=== PATIENT | female | born 1955 | race American Indian/Alaskan Native ===

== ENCOUNTER 2016-07-02 12:51 | Outpatient (CLI) | payer OTHER ==
--- NOTE | 2016-07-02 14:06 | XRay Report ---
Right hip 2 views: History: Pain and swelling. Findings: No bony or articular abnormality. No fracture or dislocation. Impression: Essentially negative right hip.
--- NOTE | 2016-07-02 14:09 | XRay Report ---
Right femur 2 views: History: Pain and swelling right eye. Findings: No fracture periosteal reaction or lytic lesion. No soft tissue calcification. Stable intramedullary man. Impression: No acute findings.
== END 2016-07-02 12:52 | disposition home or self-care (01) ==
LOC: VAS 12:51
DX: R22.41 Localized swelling, mass and lump, right lower limb (principal)

== ENCOUNTER 2016-10-28 09:49 | Day surgery (SDC) | payer OTHER ==
[2016-10-28] MEDS ORDERED: NACL 0.9% 1000 ML 1,000 ML IV SCH (11:00)
--- NOTE | 2016-10-28 11:13 | Anesthesia Day of Surgery ---
Anesthesia Day of Surgery - Day of Surgery Patient Examined: Yes Patient H&P Reviewed: Yes Patient is NPO: Yes
--- NOTE | 2016-10-28 11:15 | Anesthesia Consultation ---
Anesthesia Consult and Med Hx Date of service: 10/28/16 - Airway Anesthetic Teeth Evaluation: Partials (upper) ROM Head & Neck: Adequate Mental/Hyoid Distance: Adequate Mallampati Class: Class III Intubation Access Assessment: Probably Good - Pulmonary Exam CTA: Yes - Cardiac Exam Cardiac Exam: RRR - Pre-Operative Health Status ASA Pre-Surgery Classification: ASA3 Proposed Anesthetic Plan: MAC - Pulmonary Hx Smoking: Yes (quit 20 years ago) Hx Asthma: No - Cardiovascular System Hx Hypertension: Yes (palpitation) Hx Heart Attack/AMI: No - Central Nervous System Hx Seizures: No CVA: No - Endocrine Hx Renal Disease: Yes (cystitis) Hx Liver Disease: No Hx Non-Insulin Dependent Diabetes: No Hx Hypothyroidism: Yes (sp partial thyroidectomy, stopped taking meds) - Hematic Hx Anemia: No Hx Sickle Cell Disease: No - Other Systems Hx Cancer: No - Additional Comments Anesthesia Medical History Comments: NAC
[2016-10-28] MEDS ORDERED: DIPRIVAN 10 MG/ML IV ONE ×2 (11:50→11:51)
--- NOTE | 2016-10-28 12:24 | Operative Report ---
Operative Report Operative Report: Date of procedure: 10/28/2016 Procedure: Colonoscopy. Attending physician: Aravind Salazar MD Drill Presser: Aravind Salazar MD Indication: Patient is a 61-year-old female who presents for colorectal cancer screening. A colonoscopy serves to evaluate patient for colorectal cancer screening. Consent: Informed consent was obtained after advising the patient and family regarding nature of this procedure, its indications, potential benefits as well as possible complications including but not limited to bleeding perforation and adverse reaction to medication, infection as well as other cardiopulmonary complications. An informed written and verbal consent was then obtained after due opportunity was provided for questions and answers. Monitoring: Patient was monitored continuously with pulse oximetry and electrocardiographic recordings as well as blood pressure recordings. Vital signs remained stable throughout this procedure with no untoward events. Preoperative assessment: Patient was assessed immediately prior to this procedure for capacity to tolerate monitored anesthesia care and moderate sedation as well as general anesthesia. Patient's ASA classification is 2, Mallampati class is 2, Hyomental distance is 3. Instrument: Fujinon videocolonoscope. Fujinon video endoscope. Medications: Propofol given intravenously in divided doses. For details please refer to anesthesia records. Description of procedure: Patient was placed in the left lateral decubitus position after achieving sedation, a digital rectal examination was performed following which the colonoscope was introduced into the anal verge and advanced to the cecum which was identified by the cecal valve, the appendiceal orifice, as well as by the cecal strap and direct transillumination. The colonoscope was subsequently withdrawn with careful inspection of all mucosal surfaces. Patient tolerated this procedure well and was subsequently taken to the recovery room. The following findings were noted. Findings: Patient had significant diverticulosis involving the all segments of the colon. The rest of the colon to the cecum was normal, except for areas of retained stool. On the retroflex view at the anal verge, patient had prominent friable internal hemorrhoids. Patient tolerated the procedure well with no untoward events. Impression: Diverticular disease of the colon. Prominent Internal hemorrhoids Plan: Daily sitz baths as needed. High-fiber diet. PRN stool softeners Repeat colonoscopy in 10 years
--- NOTE | 2016-10-28 12:25 | Discharge Summary ---
Short Stay Discharge Plan Activity: advance as tolerated Weight Bearing Status: Weight Bear as Tolerated Diet: regular Additional Instructions: Post Sedation D/C Instructions When you return home you may resume your regular diet unless otherwise directed . -Go directly home from the hospital and rest quietly. You may resume normal activities tomorrow. - Do NOT drive, return to work, operate any machinery or make any important personal or business decisions today. - Do NOT drink any alcohol or take nerve or sleeping drugs. They add to the effects of the medicine still present in your body. Follow up with: MAIA BALDWIN MD [Primary Care Provider] - 7 Days
[2016-10-28 12:56] VITALS: BP 115/72
--- NOTE | 2016-10-28 13:43 | Post Anesthesia Evaluation ---
- Post Anesthesia Evaluation Patient Participated: Yes Airway Patent: Yes Stable Respiratory Function: Yes Nausea/Vomiting: No Temp > 96.8F: Yes Pain Manageable: Yes Adequeate Hydration: Yes Anesthesia Complications: No Block Receding Appropriately: Not Applicable Patient on Ventilator: No
[2016-10-28] MEDS ORDERED: XYLOCAINE MPF 2% ONE (14:00)
== END 2016-10-28 09:50 | disposition home or self-care (01) ==
LOC: GIO 09:49
PROVIDERS: ATTEND Internal Medicine Gastroenterology
DX: Z12.11 Encounter for screening for malignant neoplasm of colon (principal); K57.30 Diverticulosis of large intestine without perforation or abscess without bleeding; K64.8 Other hemorrhoids; M19.90 Unspecified osteoarthritis, unspecified site; I10 Essential (primary) hypertension; E03.9 Hypothyroidism, unspecified; Z90.710 Acquired absence of both cervix and uterus; Z87.448 Personal history of other diseases of urinary system; Z96.651 Presence of right artificial knee joint; Z79.899 Other long term (current) drug therapy; Z88.2 Allergy status to sulfonamides; Z87.891 Personal history of nicotine dependence; Z72.89 Other problems related to lifestyle; Z83.71 Family history of colonic polyps
CPT/HCPCS: G0105; J2704; J7030

== ENCOUNTER 2016-12-24 09:50 | Outpatient (CLI) | payer OTHER ==
--- NOTE | 2016-12-24 11:23 | Ultrasound Report ---
ULTRASOUND BLADDER RESIDUAL: INDICATION: Pyuria. COMPARISON: None similar. FINDINGS: Sonographic estimation of pre- and postvoid urinary bladder volume performed. Prevoid urinary bladder volume is 67 cubic centimeters. Postvoid urinary bladder volume is 12 cubic centimeters. CONCLUSION: Small postvoid residual noted, as described with bladder wall thickening not excluded. Please correlate. Thank you for the opportunity to participate in this patient's care.
--- NOTE | 2016-12-24 11:30 | Ultrasound Report ---
ULTRASOUND RENAL INDICATION: Pyuria. COMPARISON: 09/15/2011 CT. FINDINGS: Renal sonography demonstrates normal renal cortical echogenicity. Grossly preserved contours. Right kidney measures 9.4 x 4.9 x 4.9 cm with cortical thickness of 1.7 cm. Dominant right interpolar cystic lesion now estimated at 5.2 x 3.8 cm, image 14, previously approximately 7 x 5.7 cm. Right kidney in part obscured due to bowel gas. Mild right upper to mid renal collecting system fullness again seen with AP diameter of approximately 1.3 cm. Left kidney estimated at 9.3 x 4.6 x 4.7 cm with cortical thickness of 1.2 cm. Collecting system fullness centrally possible. Urinary bladder suboptimally distended and assessed. CONCLUSION: Right renal cyst again noted with possible intrarenal collecting system fullness/slight hydronephrosis, as described. Please correlate. Thank you for the opportunity to participate in this patient's care.
== END 2016-12-24 09:51 | disposition home or self-care (01) ==
LOC: US 09:50
PROVIDERS: ATTEND Internal Medicine Nephrology
DX: N28.1 Cyst of kidney, acquired (principal); N39.0 Urinary tract infection, site not specified; N32.89 Other specified disorders of bladder; N28.89 Other specified disorders of kidney and ureter; I10 Essential (primary) hypertension; E78.00 Pure hypercholesterolemia, unspecified; M06.9 Rheumatoid arthritis, unspecified; E03.9 Hypothyroidism, unspecified; Z87.891 Personal history of nicotine dependence
CPT/HCPCS: 76770; 76857

== ENCOUNTER 2017-05-17 11:23 | Outpatient (CLI) | payer OTHER ==
--- NOTE | 2017-05-17 16:51 | Mammography Report ---
BILATERAL DIGITAL SCREENING MAMMOGRAM with CAD: 05/17/17 11:23:00 CLINICAL: Routine screening. COMPARISON:THERESA 04/30/16 FINDINGS: The breasts are almost entirely fatty. No mass, architectural distortion or suspicious calcifications. IMPRESSION: No mammographic evidence of malignancy. BI-RADS CATEGORY: 1 - - Negative RECOMMENDATION: Routine mammographic screening in one year. COMMENT: Patient follow-up letters are generated by our [employer] application.
== END 2017-05-17 11:24 | disposition home or self-care (01) ==
LOC: MAMMO 11:23
PROVIDERS: ATTEND Family Medicine
DX: Z12.31 Encounter for screening mammogram for malignant neoplasm of breast (principal); I10 Essential (primary) hypertension; E78.00 Pure hypercholesterolemia, unspecified; M06.9 Rheumatoid arthritis, unspecified; E03.9 Hypothyroidism, unspecified; Z87.891 Personal history of nicotine dependence
CPT/HCPCS: 77067; G0202

== ENCOUNTER 2017-08-08 11:09 | Emergency (ER) | payer OTHER ==
[2017-08-08 12:22] LABS: Basophils # (Auto) 0.1 K/mm3 (0.0-0.1); Basophils % (Auto) 0.9 % (0.0-1.8); Eosinophils % (Auto) 0.5 % (0.0-4.3); Hematocrit 40.3 % (30.3-42.9); Hemoglobin 13.3 gm/dl (10.1-14.3); Lymphocytes # (Auto) 1.8 K/mm3 (1.2-5.4); Lymphocytes % (Auto) 30.3 % (13.4-35.0); Mean Corpuscular HGB Conc 33 % (30-34); Mean Corpuscular Hemoglobin 29 pg (28-32); Mean Corpuscular Volume 87 fl (79-97); Monocytes # (Auto) 0.5 K/mm3 (0.0-0.8); Monocytes % (Auto) 8.1 % (0.0-7.3); Platelet Count 375 K/mm3 (140-440); Red Blood Count 4.65 M/mm3 (3.65-5.03); Red Cell Distribution Width 12.2 % (13.2-15.2)
--- NOTE | 2017-08-08 12:27 | Cat Scan Report ---
CT HEAD WITHOUT CONTRAST: HISTORY: Facial numbness, general weakness. TECHNIQUE: Sequential 2.5mm CT images. COMPARISON: none. FINDINGS: Cerebral Parenchyma: Within normal limits. Cerebellum: Within normal limits. Brainstem: Within normal limits. Ventricles: Normal. Sella: Normal. Extra-axial spaces: Normal. Basal Cisterns: Normal. Intracranial Hemorrhage: None. Midline Shift: None. Calvarium: Normal. Sinuses: Normal. Mastoid Air Cells: Normal. Visualized Orbits: Normal. IMPRESSION: Cranial CT scan within normal limits.
[2017-08-08 12:31] LABS: INR 0.92 (0.87-1.13)
[2017-08-08 12:32] LABS: Partial Thromboplastin Time 32.7 Sec. (24.2-36.6)
[2017-08-08 12:33] LABS: BUN/Creatinine Ratio 21; Blood Urea Nitrogen 19 mg/dL (7-17); Calcium 9.5 mg/dL (8.4-10.2); Hemolysis Index 9
[2017-08-08 17:22] VITALS: BP 128/84
[2017-08-08] MEDS ORDERED: KIONEX PO ONE (17:35)
[2017-08-08] MEDS ORDERED: NACL 0.9% 500 ML 500 ML IV ONE (17:35)
[2017-08-08] MEDS ORDERED: PEPCID IV ONE (17:35)
[2017-08-08] MEDS ORDERED: BENTYL PO ONE (17:35)
[2017-08-08] MEDS ORDERED: TYLENOL PO ONE (17:35)
--- NOTE | 2017-08-08 17:42 | Emergency Department Report ---
ED General Adult HPI - General Chief complaint: Pain General Stated complaint: CRAMPS Time Seen by Provider: 08/08/17 17:21 Source: patient, RN notes reviewed, old records reviewed Mode of arrival: Ambulatory Limitations: No Limitations - History of Present Illness Initial comments: This is a 62-year-old female. The patient is previously on known to this provider. Her primary care doctor is Dr. Sanford Tarango. Past medical history includes arthritis, hypertension, hyperthyroidism. The patient presents to the ER with a complaint of head pressure and headache, abdominal cramping, leg cramping, and bilateral facial numbness. The symptoms have been present since Tuesday. Today is Tuesday. The symptoms are intermittent , do not radiate anywhere, did not have exacerbating or relieving factors. The headache is occipital and parietal, on the right-hand side, is not sudden or thunderclap in nature, and did not reach maximal intensity within an hour. It is not the most intense headache of her life. The facial numbness is in the bilateral maxillary regions, and mandibular regions. It does not radiate anywhere, and has no exacerbating or relieving factors. The patient makes no complaints of unsteady gait. The patient's next complaint is lower abdominal cramping. It does not radiate anywhere. It does not have exacerbating or relieving factors. Patient also describes urinary frequency, and foul smell to her urine. She denies dy Suria.the patient also complains of bilateral medial and lateral and anterior leg cramping, and leg discomfort. There is no extremity weakness, there is no bladder or bowel retention or incontinence, there is no saddle anesthesia. 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 -: Gradual Location: head, abdomen, left, right, upper extremity, lower extremity Severity scale (0 -10): 0 Quality: aching Consistency: intermittent Improves with: none Worsens with: none Associated Symptoms: headaches, malaise. denies: confusion, chest pain, cough, diaphoresis, fever/chills, loss of appetite, nausea/vomiting, rash, seizure, shortness of breath, syncope, weakness - Related Data Home Medications Medication Instructions Recorded Confirmed Last Taken AtorvaSTATin [Lipitor] 10 mg PO QHS 08/08/17 08/08/17 08/07/17 Desmopressin [Ddavp] 0.2 mg PO DAILY 08/08/17 08/08/17 08/07/17 Hydrochlorothiazide [HCTZ] 25 mg PO QDAY 08/08/17 08/08/17 08/07/17 Metoprolol [Lopressor] 25 mg PO BID 08/08/17 08/08/17 08/07/17 Pantoprazole [Protonix] 40 mg PO QDAY 08/08/17 08/08/17 08/07/17 Pentosan Polysulfate Sodium 1 tab PO TID 08/08/17 08/08/17 08/07/17 [Elmiron] Previous Rx's Medication Instructions Recorded Last Taken Type Dicyclomine [Bentyl] 10 mg PO QID PRN #30 capsule 08/08/17 Unknown Rx Nitrofurantoin Greenbrier/M-Cryst 100 mg PO Q12HR #14 capsule 08/08/17 Unknown Rx [Macrobid CAP] Allergies Allergy/AdvReac Type Severity Reaction Status Date / Time aspirin Allergy Rash Verified 12/12/15 08:23 Sulfa (Sulfonamide Allergy Shortness Verified 03/26/14 23:08 Antibiotics) of Breath ED Review of Systems ROS: Stated complaint: CRAMPS Other details as noted in HPI Constitutional: denies: fever Eyes: denies: vision change ENT: denies: epistaxis Respiratory: denies: cough Cardiovascular: denies: chest pain Gastrointestinal: denies: vomiting Genitourinary: frequency Musculoskeletal: myalgia Skin: denies: lesions Neurological: headache, numbness. denies: weakness, paresthesias, confusion, abnormal gait Psychiatric: anxiety ED Past Medical Hx - Past Medical History Previous Medical History?: Yes Hx Hypertension: Yes (palpitation) Hx Heart Attack/AMI: No Hx GERD: Yes Hx Liver Disease: No Hx Renal Disease: Yes (cystitis) Hx Sickle Cell Disease: No Hx Arthritis: Yes Hx Seizures: No Hx Asthma: No Additional medical history: Fmeruas-Habey-Xowrd - Surgical History Past Surgical History?: Yes Additional Surgical History: hysterectomy, tubal ligation, bilateral foot surgery - Social History Smoking Status: Former Smoker Substance Use Type: Alcohol, Prescribed - Medications Home Medications: Home Medications Medication Instructions Recorded Confirmed Last Taken Type AtorvaSTATin [Lipitor] 10 mg PO QHS 08/08/17 08/08/17 08/07/17 History Desmopressin [Ddavp] 0.2 mg PO DAILY 08/08/17 08/08/17 08/07/17 History Dicyclomine [Bentyl] 10 mg PO QID PRN #30 capsule 08/08/17 Unknown Rx Hydrochlorothiazide [HCTZ] 25 mg PO QDAY 08/08/17 08/08/17 08/07/17 History Metoprolol [Lopressor] 25 mg PO BID 08/08/17 08/08/17 08/07/17 History Nitrofurantoin Green[place]/M-Cryst 100 mg PO Q12HR #14 capsule 08/08/17 Unknown Rx [Macrobid CAP] Pantoprazole [Protonix] 40 mg PO QDAY 08/08/17 08/08/17 08/07/17 History Pentosan Polysulfate Sodium 1 tab PO TID 08/08/17 08/08/17 08/07/17 History [Elmiron] ED Physical Exam - General Limitations: No Limitations General appearance: alert, in no apparent distress - Head Head exam: Present: atraumatic, normocephalic - Eye Eye exam: Present: normal appearance, PERRL, EOMI, other (visual acuity intact to finger counting, color perception, reading at a close distance). Absent: nystagmus - ENT ENT exam: Present: normal exam, normal orophraynx, mucous membranes moist, normal external ear exam - Neck Neck exam: Present: normal inspection, full ROM - Respiratory Respiratory exam: Present: normal lung sounds bilaterally. Absent: respiratory distress - Cardiovascular Cardiovascular Exam: Present: regular rate, normal rhythm, normal heart sounds. Absent: bradycardia, tachycardia, irregular rhythm, systolic murmur, diastolic murmur, rubs, gallop - GI/Abdominal GI/Abdominal exam: Present: soft, normal bowel sounds. Absent: distended, tenderness, guarding, rebound, rigid, pulsatile mass - Extremities Exam Extremities exam: Present: normal inspection, full ROM, normal capillary refill. Absent: pedal edema, joint swelling, calf tenderness - Back Exam Back exam: Present: normal inspection, full ROM. Absent: tenderness, CVA tenderness (R), paraspinal tenderness, vertebral tenderness - Neurological Exam Neurological exam: Present: alert, oriented X3, CN II-XII intact, normal gait ( normal tandem gait, negative past pointing, negative pronator drift, negative Romberg exam. No cerebellar signs), other (Extraocular movements intact. Tongue midline. No facial droop. Facial sensation intact to light touch in the V1, V2, V3 distribution bilaterally. 5 and 5 strength in 4 extremities.. Sensation is intact to light touch in 4 extremities.). Absent: motor sensory deficit - Psychiatric Psychiatric exam: Present: anxious - Skin Skin exam: Present: warm, dry, intact, normal color. Absent: rash ED Course Vital Signs 08/08/17 08/08/17 08/08/17 11:15 15:28 17:18 Temperature 98.4 F 98.8 F 98.5 F Pulse Rate 88 85 89 Respiratory 20 16 18 Rate Blood Pressure 117/76 Blood Pressure 122/83 128/84 [Right] O2 Sat by Pulse 98 100 99 Oximetry - Reevaluation(s) Reevaluation #1: 08/08/17 17:40 Differential diagnosis, including not limited to: Result migraine, resolved tension headache, conversion disorder, multiple sclerosis, peripheral neuropathy , cystitis, intra-abdominal infection, electrolyte derangement, fibromyalgia, myositis Assessment and plan: 62-year-old female with multiple complaints. Patient endorses that she took additional magnesium and potassium over-the- counter supplementation within the past few days for her cramping, and is found to have potassium today of 6 which is not hemolyzed. She will be given IV fluids and Kayexalate. Has a GCS of 15, NIH score of 0, walks with a steady gait, has no cerebellar signs, and to me did not complain or endorse any indication of unsteady gait. A noncontrast CT scan of the brain was negative. Her physical exam is unremarkable. Serum creatinine kinase, magnesium and phosphorus will be added on, urinalysis is pending, CT scan of the abdomen and pelvis is pending. The patient's history and physical do not appear to indicate any emergent condition, I am not able to elicit any numbness on her face on her exam, and given that she endorses bilateral V2, V3 numbness subjectively, does not anatomically consistent with a stroke or TIA. Reevaluation #2: 08/08/17 19:08 Creatinine kinase within normal limits. Magnesium slightly elevated. CT scan of the abdomen and pelvis negative. Urinalysis suggestive of urinary tract infection. Patient will be instructed to discontinue supplemental magnesium and potassium ingestion. She will be started on Macrobid. She'll be instructed to follow-up with her outpatient primary care doctor and local neurology. Return precautions reviewed. ED Medical Decision Making - Lab Data Result diagrams: 08/08/17 12:11 08/08/17 12:11 Vital Signs 08/08/17 08/08/17 08/08/17 11:15 15:28 17:18 Temperature 98.4 F 98.8 F 98.5 F Pulse Rate 88 85 89 Respiratory 20 16 18 Rate Blood Pressure 117/76 Blood Pressure 122/83 128/84 [Right] O2 Sat by Pulse 98 100 99 Oximetry Lab Results 08/08/17 08/08/17 08/08/17 Range/Units 12:11 12:11 12:11 WBC 6.1 (4.5-11.0) K/mm3 RBC 4.65 (3.65-5.03) M/mm3 Hgb 13.3 (10.1-14.3) gm/dl Hct 40.3 (30.3-42.9) % MCV 87 (79-97) fl MCH 29 (28-32) pg MCHC 33 (30-34) % RDW 12.2 L (13.2-15.2) % Plt Count 375 (140-440) K/mm3 Lymph % (Auto) 30.3 (13.4-35.0) % [place]brier % (Auto) 8.1 H (0.0-7.3) % Eos % (Auto) 0.5 (0.0-4.3) % Baso % (Auto) 0.9 (0.0-1.8) % Lymph # 1.8 (1.2-5.4) K/mm3 Green[place]rier # 0.5 (0.0-0.8) K/mm3 Eos # 0.0 (0.0-0.4) K/mm3 Baso # 0.1 (0.0-0.1) K/mm3 Seg Neutrophils % 60.2 (40.0-70.0) % Seg Neutrophils # 3.7 (1.8-7.7) K/mm3 PT 12.8 (12.2-14.9) Sec. INR 0.92 (0.87-1.13) APTT 32.7 (24.2-36.6) Sec. Thrombin Time (15.1-19.6) Sec. Sodium 134 L (137-145) mmol/L Potassium 6.0 H (3.6-5.0) mmol/L Chloride 95.7 L (98-107) mmol/L Carbon Dioxide 26 (22-30) mmol/L Anion Gap 18 mmol/L BUN 19 H (7-17) mg/dL Creatinine 0.9 (0.7-1.2) mg/dL Estimated GFR > 60 ml/min BUN/Creatinine Ratio 21 % Glucose 100 (65-100) mg/dL POC Glucose (70-105) Calcium 9.5 (8.4-10.2) mg/dL Troponin T < 0.010 (0.00-0.029) ng/mL 08/08/17 08/08/17 Range/Units 12:11 17:38 WBC (4.5-11.0) K/mm3 RBC (3.65-5.03) M/mm3 Hgb (10.1-14.3) gm/dl Hct (30.3-42.9) % MCV (79-97) fl MCH (28-32) pg MCHC (30-34) % RDW (13.2-15.2) % Plt Count (140-440) K/mm3 Lymph % (Auto) (13.4-35.0) % Greenbrier % (Auto) (0.0-7.3) % Eos % (Auto) (0.0-4.3) % Baso % (Auto) (0.0-1.8) % Lymph # (1.2-5.4) K/mm3 [place] # (0.0-0.8) K/mm3 Eos # (0.0-0.4) K/mm3 Baso # (0.0-0.1) K/mm3 Seg Neutrophils % (40.0-70.0) % Seg Neutrophils # (1.8-7.7) K/mm3 PT (12.2-14.9) Sec. INR (0.87-1.13) APTT (24.2-36.6) Sec. Thrombin Time 15.9 (15.1-19.6) Sec. Sodium (137-145) mmol/L Potassium (3.6-5.0) mmol/L Chloride (98-107) mmol/L Carbon Dioxide (22-30) mmol/L Anion Gap mmol/L BUN (7-17) mg/dL Creatinine (0.7-1.2) mg/dL Estimated GFR ml/min BUN/Creatinine Ratio % Glucose (65-100) mg/dL POC Glucose 85 (70-105) Calcium (8.4-10.2) mg/dL Troponin T (0.00-0.029) ng/mL - EKG Data -: EKG Interpreted by Ny EKG shows normal: sinus rhythm Rate: normal - EKG Data When compared to previous EKG there are: previous EKG unavailable 08/08/17 17:43 Normal sinus, 67 bpm, normal axis, normal intervals, not morphologically consistent with ST elevation myocardial infarction - Radiology Data Radiology results: report reviewed, image reviewed noncontrast CT scan of the brain, interpreted by radiology: No acute disease eport Referring Physician: RYAN RÍOS Patient Name: TRAM SLAUGHTER Date of : 1955 Sex: Female Report Date: 2017-08-08 Report Status: Finalized Findings [facility] [address] [place] [address] Cat Scan Report Signed Patient: TRAM SLAUGHTER MR#: [id number] : 1955 Acct:[id number] Age/Sex: 62 / F ADM Date: 08/08/17 Loc: ED Attending Dr: Ordering Physician: RYAN RÍOS MD Date of Service: 08/08/17 Procedure(s): CT abdomen pelvis w con Accession Number(s): [id number] cc: RYAN RÍOS MD FINAL REPORT EXAM: CT ABDOMEN PELVIS W CON HISTORY: abd pain cramps TECHNIQUE: Standard enhanced CT of the abdomen and pelvis. Coronal and sagittal reconstruction was also performed. Delayed imaging though the kidneys and bladder were obtained. Contrast: 100 mL Omnipaque 300 given IV. PRIORS: None. FINDINGS: Within the abdomen, the liver demonstrates a well-defined 12 mm rounded nonenhancing focus in the lower portion of the right lobe, likely a cyst. This is unchanged on delayed imaging. T Here is a large hypodense nonenhancing peripelvic cyst in the right, stable on both initial and delayed imaging. This measures 5.5 x 4.2 x 1.9 cm. The spleen, pancreas, gallbladder, adrenal glands, and left kidney are unremarkable. No evidence for retroperitoneal or pelvic lymphadenopathy is seen. The bowel loops have normal caliber. No soft tissue mass, fluid collection, inflammatory change, or free air is seen within the abdomen or pelvis. The appendix is normal. There is a fat replaced small umbilical hernia identified in the midline. Within the pelvis, the bladder is unremarkable. The uterus has been surgically removed. No evidence for mass or lymphadenopathy is seen in the pelvis. Images through the upper abdomen include the lung bases which are expanded and clear. Bony structures show moderate to severe disc space narrowing from L3 through S1. Degenerative changes at these levels is noted. Mild S-shaped scoliosis of the thoracolumbar spine is present. IMPRESSION: 1. no acute intra-abdominal process noted. 2. Low-density cysts in the inferior right lobe of the liver and the peripelvic region of the right kidney 3.. Small umbilical hernia containing only fat. Transcribed By: [facility] Dictated By: YENI NG MD Electronically Authenticated By: YENI NG MD Signed Date/Time: 08/08/17 6229 Critical care attestation.: If time is entered above; I have spent that time in minutes in the direct care of this critically ill patient, excluding procedure time. ED Disposition Clinical Impression: Cystitis Disposition: DC-01 TO HOME OR SELFCARE Is pt being admited?: No Does the pt Need Aspirin: No Condition: Stable Instructions: Urinary Tract Infection in Women (ED) Additional Instructions: Take the antibiotic, pain medication as needed/directed. Discontinue [id number] consumption of magnesium and potassium supplementation. Follow up with the primary care doctor within the next 2 weeks. Follow up with any of the listed neurology specialists within the next 3 weeks. Return to the ER right away with new pain, worsened pain, migration of pain, weakness, numbness, unsteady gait, confusion, intractable nausea or vomiting, inability to tolerate liquid feeds. Referrals: DENNY MALAVE [Other] - 3-5 Days ROLANDO OLIVARES MD [Staff Physician] - 3-5 Days BRANDON MENCHACA MD [Referring] - 3-5 Days
[2017-08-08 19:02] LABS: Bacteria,Urine 1+ /HPF (Negative); Bilirubin,Urine NEG (Negative); Blood,Urine NEG (Negative); Color,Urine Yellow (Yellow); Mucus,Urine FEW /HPF; Protein,Urine <15 mg/dL mg/dL (Negative); Urobilinogen,Urine < 2.0 mg/dL (<2.0)
--- NOTE | 2017-08-08 19:04 | Cat Scan Report ---
FINAL REPORT EXAM: CT ABDOMEN PELVIS W CON HISTORY: abd pain cramps TECHNIQUE: Standard enhanced CT of the abdomen and pelvis. Coronal and sagittal reconstruction was also performed. Delayed imaging though the kidneys and bladder were obtained. Contrast: 100 mL Omnipaque 300 given IV. PRIORS: None. FINDINGS: Within the abdomen, the liver demonstrates a well-defined 12 mm rounded nonenhancing focus in the lower portion of the right lobe, likely a cyst. This is unchanged on delayed imaging. T Here is a large hypodense nonenhancing peripelvic cyst in the right, stable on both initial and delayed imaging. This measures 5.5 x 4.2 x 1.9 cm. The spleen, pancreas, gallbladder, adrenal glands, and left kidney are unremarkable. No evidence for retroperitoneal or pelvic lymphadenopathy is seen. The bowel loops have normal caliber. No soft tissue mass, fluid collection, inflammatory change, or free air is seen within the abdomen or pelvis. The appendix is normal. There is a fat replaced small umbilical hernia identified in the midline. Within the pelvis, the bladder is unremarkable. The uterus has been surgically removed. No evidence for mass or lymphadenopathy is seen in the pelvis. Images through the upper abdomen include the lung bases which are expanded and clear. Bony structures show moderate to severe disc space narrowing from L3 through S1. Degenerative changes at these levels is noted. Mild S-shaped scoliosis of the thoracolumbar spine is present. IMPRESSION: 1. no acute intra-abdominal process noted. 2. Low-density cysts in the inferior right lobe of the liver and the peripelvic region of the right kidney 3.. Small umbilical hernia containing only fat.
== END 2017-08-08 20:01 | disposition home or self-care (01) ==
LOC: ED 11:09
DX: N30.90 Cystitis, unspecified without hematuria (principal); I10 Essential (primary) hypertension; K21.9 Gastro-esophageal reflux disease without esophagitis
CPT/HCPCS: 36415; 70450; 74177; 80048; 81001; 82550; 82962; 83735; 84100; 84484; 85025; 85610; 85670; 85730; 87076; 87086; 87186; 93005; 93010; 96374; 99285; J7040; Q9967

== ENCOUNTER 2019-05-21 11:30 | Outpatient (CLI) | payer MEDICARE, OTHER ==
--- NOTE | 2019-05-21 15:44 | Mammography Report ---
DIGITAL SCREENING MAMMOGRAM WITH CAD, 05/21/2019 INDICATION: Routine screening mammography. TECHNIQUE: Digital bilateral 2D mammography was obtained in the craniocaudal and mediolateral obliq ue projections. This examination was interpreted with the benefit of Computer-Aided Detection analysi s. COMPARISON: 05/18/2018 FINDINGS: Breast Density: The breasts are almost entirely fatty. There is no evidence of dominant mass, suspicious calcifications or architectural distortion in eithe r breast. IMPRESSION: No mammographic evidence of malignancy. Follow up recommendation: Routine yearly BI-RADS Category 1: Negative. A "normal" or negative report should not discourage follow up or biopsy of a clinically significant f inding. A written summary of these findings will be mailed to the patient. The patient will be entered into a mammography reporting system which will generate a reminder letter for the patient's next appointmen t at the appropriate interval. The [employer] recommends yearly mammograms starting at age 40 and continuing as l dmitri as a woman is in good health. Breast MRI is recommended for women with an approximate 20-25% or greater lifetime risk of breast cancer, including women with a strong family history of breast or ova nyla cancer or who have been treated for Hodgkin's disease. Signer Name: Daron Stapleton MD Signed: 05/21/2019 3:40 PM Workstation Name: [id number]
== END 2019-05-21 11:31 | disposition home or self-care (01) ==
LOC: MAMMO 11:30
PROVIDERS: ATTEND Family Medicine
DX: Z12.31 Encounter for screening mammogram for malignant neoplasm of breast (principal)
CPT/HCPCS: 77067

== ENCOUNTER 2020-08-19 10:45 | Outpatient (CLI) | payer MEDICARE, OTHER ==
--- NOTE | 2020-08-19 12:50 | Mammography Report ---
BILATERAL DIGITAL SCREENING MAMMOGRAM WITH CAD HISTORY: SCREENING MAMMOGRAM TECHNIQUE: Routine digital mammographic imaging performed. This examination was interpreted with orquidea page benefit of Computer-aided Detection analysis. COMPARISON: 05/21/2019, 05/18/2018, 05/17/2017. FINDINGS: Breast Density: predominantly fatty breast parenchymal pattern. Digital CC and MLO views demonstrate no mammographic evidence of malignancy. IMPRESSION: No mammographic evidence of malignancy. If the clinical examination remains stable, recommend bilate ral mammogram in approximately one year. BIRADS 1: Negative. FURTHER INFORMATION: According to the [employer], yearly mammograms are recommend ed starting at age 40 and continuing as long as a woman is in good health. Clinical Breast Exams shou ld be part of a periodic health exam-about every 3 years for women in their 20s and 30s and every yea r for women 40 and over. Breast self exam is an option for women starting in their 20s. Any breast ch laura noted on a breast self exam should be reported promptly to the patient's healthcare provider. Br east MRI is recommended for women with an approximately 20-25% or greater lifetime risk of breast can cer, including women with a strong family history of breast or ovarian cancer and women who have been treated for Hodgkin's disease. A negative Mammography report should not discourage follow up or biopsy of a clinically significant f inding and/or abnormality. Dense breast tissue may obscure small neoplasms. The patient will be entered into a reminder system with a target due date for the next screening mamm ogram. Signer Name: Al Bolaños MD Signed: 08/19/2020 12:46 PM Workstation Name: [id number]
== END 2020-08-19 10:46 | disposition home or self-care (01) ==
LOC: MAMMO 10:45
PROVIDERS: ATTEND Family Medicine
DX: Z12.31 Encounter for screening mammogram for malignant neoplasm of breast (principal); N64.89 Other specified disorders of breast
CPT/HCPCS: 77067

== ENCOUNTER 2021-06-06 00:22 | Emergency (ER) | payer MEDICARE, OTHER ==
[2021-06-06] MEDS ORDERED: ETOMIDATE 20 MG/10 ML INJ IV ONE (01:08)
--- NOTE | 2021-06-06 01:34 | XRay Report ---
Right shoulder-2 views INDICATION: Acute generalized right shoulder pain, dislocation. COMPARISON: None available. IMPRESSION: Anterior inferior humeral dislocation. No definite fracture identified on this exam. Mod ag THOMPSON DJD. Signer Name: Zack Mederos MD Signed: 06/06/2021 1:30 AM Workstation Name: [id number]
[2021-06-06 02:06] VITALS: BP 118/76
--- NOTE | 2021-06-06 02:31 | XRay Report ---
Right shoulder-2 views INDICATION: post reduction. COMPARISON: None available. IMPRESSION: 2 oblique images of the right shoulder did not allow for adequate evaluation of relocatio n/potential subluxation. Recommend repeating exam with appropriate positioning. Signer Name: Zack Mederos MD Signed: 06/06/2021 2:27 AM Workstation Name: [id number]
--- NOTE | 2021-06-06 02:33 | Emergency Department Report ---
ED Upper Extremity Inj HPI - General Chief Complaint: Extremity Injury, Upper Stated Complaint: DISLOCATED SHOULDER Time Seen by Provider: 06/06/21 01:07 Source: patient, EMS Mode of arrival: Stretcher Limitations: Physical Limitation - History of Present Illness MD Complaint: Injury to:: right, shoulder -: Sudden Other Extremity Injury: Shoulder: Right Other Injuries: none Place: home Severity scale (0 -10): 5 Improves With: immobilization Worsens With: movement of extremity Context: fall Associated Symptoms: denies other symptoms - Related Data Home Medications Medication Instructions Recorded Confirmed Last Taken AtorvaSTATin [Lipitor] 10 mg PO QHS 08/08/17 08/08/17 08/07/17 Desmopressin [Ddavp] 0.2 mg PO DAILY 08/08/17 08/08/17 08/07/17 Metoprolol [Lopressor] 25 mg PO BID 08/08/17 08/08/17 08/07/17 Pantoprazole [Protonix] 40 mg PO QDAY 08/08/17 08/08/17 08/07/17 Pentosan Polysulfate Sodium 1 tab PO TID 08/08/17 08/08/17 08/07/17 [Elmiron] hydroCHLOROthiazide [HCTZ] 25 mg PO QDAY 08/08/17 08/08/17 08/07/17 Previous Rx's Medication Instructions Recorded Last Taken Type Dicyclomine [Bentyl] 10 mg PO QID PRN #30 capsule 08/08/17 Unknown Rx Nitrofurantoin Richardson/M-Cryst 100 mg PO Q12HR #14 capsule 08/08/17 Unknown Rx [Macrobid CAP] Allergies Allergy/AdvReac Type Severity Reaction Status Date / Time aspirin Allergy Rash Verified 12/12/15 08:23 Sulfa (Sulfonamide Allergy Shortness Verified 03/26/14 23:08 Antibiotics) of Breath ED Review of Systems ROS: Stated complaint: DISLOCATED SHOULDER Other details as noted in HPI Constitutional: denies: chills, fever Eyes: denies: eye pain, eye discharge, vision change ENT: denies: ear pain, throat pain Respiratory: denies: cough, shortness of breath, wheezing Cardiovascular: denies: chest pain, palpitations Endocrine: no symptoms reported Gastrointestinal: denies: abdominal pain, nausea, diarrhea Genitourinary: denies: urgency, dysuria, discharge Musculoskeletal: denies: back pain, joint swelling, arthralgia Skin: denies: rash, lesions Neurological: denies: headache, weakness, paresthesias Psychiatric: denies: anxiety, depression Hematological/Lymphatic: denies: easy bleeding, easy bruising ED Past Medical Hx - Past Medical History Hx Hypertension: Yes (palpitation) Hx Heart Attack/AMI: No Hx GERD: Yes Hx Liver Disease: No Hx Renal Disease: Yes (cystitis) Hx Sickle Cell Disease: No Hx Arthritis: Yes Hx Seizures: No Hx Asthma: No Additional medical history: [id number] - Surgical History Additional Surgical History: hysterectomy, tubal ligation, bilateral foot surgery - Social History Smoking Status: Former Smoker Substance Use Type: Alcohol, Prescribed - Medications Home Medications: Home Medications Medication Instructions Recorded Confirmed Last Taken Type AtorvaSTATin [Lipitor] 10 mg PO QHS 08/08/17 08/08/17 08/07/17 History Desmopressin [Ddavp] 0.2 mg PO DAILY 08/08/17 08/08/17 08/07/17 History Dicyclomine [Bentyl] 10 mg PO QID PRN #30 capsule 08/08/17 Unknown Rx Metoprolol [Lopressor] 25 mg PO BID 08/08/17 08/08/17 08/07/17 History Nitrofurantoin Richardson/M-Cryst 100 mg PO Q12HR #14 capsule 08/08/17 Unknown Rx [Macrobid CAP] Pantoprazole [Protonix] 40 mg PO QDAY 08/08/17 08/08/17 08/07/17 History Pentosan Polysulfate Sodium 1 tab PO TID 08/08/17 08/08/17 08/07/17 History [Elmiron] hydroCHLOROthiazide [HCTZ] 25 mg PO QDAY 08/08/17 08/08/17 08/07/17 History ED Physical Exam - General Limitations: Physical Limitation General appearance: alert, in no apparent distress - Head Head exam: Present: atraumatic, normocephalic - Eye Eye exam: Present: normal appearance - ENT ENT exam: Present: mucous membranes moist - Neck Neck exam: Present: normal inspection - Respiratory Respiratory exam: Present: normal lung sounds bilaterally. Absent: respiratory distress - Cardiovascular Cardiovascular Exam: Present: regular rate, normal rhythm. Absent: systolic murmur, diastolic murmur, rubs, gallop - GI/Abdominal GI/Abdominal exam: Present: soft, normal bowel sounds - Extremities Exam Extremities exam: Present: normal inspection - Expanded Upper Extremity Exam Right Shoulder Exam: Present: tenderness, dislocation - Back Exam Back exam: Present: normal inspection - Neurological Exam Neurological exam: Present: alert, oriented X3 - Psychiatric Psychiatric exam: Present: normal affect, normal mood - Skin Skin exam: Present: warm, dry, intact, normal color. Absent: rash ED Course Vital Signs 06/06/21 06/06/21 06/06/21 01:43 01:45 01:46 Temperature [ 98.2 F Pre-Procedure] Pulse Rate 91 H 84 Pulse Rate [Pre 90 -Procedure] Respiratory 9 L 12 Rate Respiratory 18 Rate [Pre- Procedure] Blood Pressure 97/57 117/71 [Left] Blood Pressure 157/77 [Pre-Procedure] O2 Sat by Pulse 99 99 Oximetry O2 Sat by Pulse 99 Oximetry [Pre- Procedure] 06/06/21 02:05 Temperature [ Pre-Procedure] Pulse Rate 95 H Pulse Rate [Pre -Procedure] Respiratory 16 Rate Respiratory Rate [Pre- Procedure] Blood Pressure 118/76 [Left] Blood Pressure [Pre-Procedure] O2 Sat by Pulse 100 Oximetry O2 Sat by Pulse Oximetry [Pre- Procedure] - Orthopedic Joint Reduction Joint #1 Consent Obtained: verbal consent Time Out Performed: Yes Side: right Joint Reduction Location: shoulder Analgesia: moderate sedation Shoulder Technique Used (if applicable): external rotation Technique Used: direct manipulation Post-Reduction Neuro Exam: intact Post-Reduction Vascular Exam: intact Post Reduction X-Ray Obtained: Yes Post Reduction X-Ray Results: reduced Splint Applied: Yes Patient Tolerated Procedure: well Critical Care Time: Yes Critical care time in (mins) excluding proc time.: 45 Critical care attestation.: If time is entered above; I have spent that time in minutes in the direct care of this critically ill patient, excluding procedure time. ED Disposition Clinical Impression: Dislocation of right shoulder joint Disposition: 01 HOME / SELF CARE / HOMELESS Is pt being admited?: No Does the pt Need Aspirin: No Condition: Stable Instructions: Shoulder Dislocation Referrals: JFE IZAGUIRRE MD [Primary Care Provider] - 3-5 Days
== END 2021-06-06 03:21 | disposition home or self-care (01) ==
LOC: ED 00:22
DX: S43.084A Other dislocation of right shoulder joint, initial encounter (principal); I10 Essential (primary) hypertension; K21.9 Gastro-esophageal reflux disease without esophagitis; M19.90 Unspecified osteoarthritis, unspecified site; Z98.51 Tubal ligation status; Z98.890 Other specified postprocedural states; Z90.710 Acquired absence of both cervix and uterus; Z88.6 Allergy status to analgesic agent; Z88.2 Allergy status to sulfonamides; Z79.899 Other long term (current) drug therapy; W18.39XA Other fall on same level, initial encounter; Y93.89 Activity, other specified; Y92.89 Other specified places as the place of occurrence of the external cause; Y99.8 Other external cause status
CPT/HCPCS: 23650; 73030; 99284; J3490

== ENCOUNTER 2021-09-07 09:59 | Outpatient (CLI) | payer MEDICARE, OTHER ==
--- NOTE | 2021-09-09 08:43 | Mammography Report ---
DIGITAL SCREENING MAMMOGRAM WITH CAD, 09/07/2021 CLINICAL INFORMATION / INDICATION: Routine screening mammography. TECHNIQUE: Digital bilateral 2D mammography was obtained in the craniocaudal and mediolateral obliqu e projections. This examination was interpreted with the benefit of Computer-Aided Detection analysis . COMPARISON: 08/19/2020, 07/22/2018, 05/18/2018 FINDINGS: Breast Density: The breasts are almost entirely fatty. No dominant mass, suspicious calcifications, or architectural distortion in either breast. There has been no significant interval change. IMPRESSION: No mammographic evidence of malignancy. Follow up recommendation: Routine yearly BI-RADS Category 1: NEGATIVE A "normal" or negative report should not discourage follow up or biopsy of a clinically significant f inding. A written summary of these findings will be mailed to the patient. The patient will be entered into a mammography reporting system which will generate a reminder letter for the patient's next appointmen t at the appropriate interval. The [employer] recommends yearly mammograms starting at age 40 and continuing as l dmitri as a woman is in good health. Breast MRI is recommended for women with an approximate 20-25% or greater lifetime risk of breast cancer, including women with a strong family history of breast or ova nyla cancer or who have been treated for Hodgkin's disease. Signer Name: Carmelina Amaya MD Signed: 09/09/2021 8:39 AM Workstation Name: [id number]
== END 2021-09-07 10:00 | disposition home or self-care (01) ==
LOC: MAMMO 09:59
PROVIDERS: ATTEND Nurse Practitioner
DX: Z12.31 Encounter for screening mammogram for malignant neoplasm of breast (principal)
CPT/HCPCS: 77067